=== PATIENT | male | born 1930 | race Two or more races ===

== ENCOUNTER 2016-09-11 08:36 | Inpatient (IN) | payer OTHER, MEDICAID ==
--- NOTE | 2016-09-11 09:13 | EDPHY ---
H & P Stated Complaint: SHAKEY/FEVER/SORE THROAT Time Seen by Provider: 09/11/16 08:56 HPI/ROS: CHIEF COMPLAINT: Fever HISTORY OF PRESENT ILLNESS: The patient is an 85 year old male with history of diabetes who presents to the emergency department with fever yesterday. The patient reports feeling hot, diaphoretic, and shaky after going outside yesterday. He felt short of breath last night as well as this morning with ambulation. The patient has had an ongoing cough since diagnosed with pneumonia last May. He is required to wear oxygen at night but is not always complaint. The patient's BGL this morning was elevated at 200. He denies chest pain, palpitations, vomiting, diarrhea, urinary complaints, headache, lightheadedness. No history of CO or CHF. The patient recently saw Dr. Dickerson, but according to son, he told his PCP that he was asymptomatic and felt fine. Son states the patient is more weak and tired than usual. He intermittently has fevers and has had an ongoing productive cough. The patient had a right leg DVT in May 2016. He is no longer on anticoagulants. REVIEW OF SYSTEMS: Aside from elements discussed in the HPI, a comprehensive 10-point review of systems was reviewed and is negative. PAST MEDICAL HISTORY: Diabetes SOCIAL HISTORY: Former smoker, Lives independently at home, son states home is untidy. 1 beer occasionally. VITAL SIGNS: Reviewed by me GENERAL: Well-developed, well-nourished, visibly tachypneic. HEENT: Atraumatic. Eyes: No icterus, no injection. Mouth: moist mucous membranes. No erythema or lesions. Neck: supple with no adenopathy. LUNGS: Clear to auscultation bilaterally, no wheezes, rhonchi or rales. CARDIAC: Regular rate and rhythm, no rubs, murmurs or gallops. ABDOMEN: Soft, nontender, nondistended, bowel sounds normal. BACK: No CVA tenderness. EXTREMITIES: No trauma. No edema. Range of motion is normal throughout. NEURO: Alert and oriented, grossly nonfocal. SKIN: Warm and dry, no rash. PSYCHIATRIC: Normal mentation, no agitation. Portions of this note were transcribed by a biomedical electronics technician. I personally performed a history, physical exam, medical decision making, and confirmed accuracy of information the transcribed note. - Personal History Current Tetanus/Diphtheria Vaccine: Yes Current Tetanus Diphtheria and Acellular Pertussis (TDAP): Yes - Medical/Surgical History Hx Asthma: No Hx Chronic Respiratory Disease: No Hx Diabetes: Yes Hx Cardiac Disease: Yes Hx Renal Disease: No Hx Cirrhosis: No Hx Alcoholism: No Hx HIV/AIDS: No Hx Splenectomy or Spleen Trauma: No Other PMH: diabetes. htn, high cholesterol. sepsis. "blood clot" - Social History Smoking Status: Former smoker Constitutional: Initial Vital Signs Temperature (C) 36.3 C 09/11/16 08:37 Heart Rate 88 09/11/16 08:37 Respiratory Rate 16 09/11/16 08:37 Blood Pressure 119/52 L 09/11/16 08:37 O2 Sat (%) 96 09/11/16 08:37 O2 Delivery Mode Room Air Allergies/Adverse Reactions: No Known Allergies Allergy (Verified 06/13/16 18:32) Home Medications: Medication Instructions Recorded Albuterol [Proventil] 1 - 2 puffs IH DAILY PRN 05/28/15 Insulin Aspart [Novolog Flexpen] 12 units SQ BID PRN 05/29/15 Atorvastatin Calcium [Lipitor 40 40 mg PO DAILY 09/11/16 mg (*)] Insulin Glargine [Lantus 100 40 units SC HS 09/11/16 UNITS/ML (*)] Medical Decision Making - Diagnostics EKG Interpretation: The 12 lead EKG was interpreted by myself. See hard copy and/or "tracemaster" electronic copy for interpretation: Sinus rhythm, rate 79. Imaging: X-ray: chest was obtained. I viewed the images myself on the PACS system. My interpretation of the images is: Consistent with bronchitis. No pneumonia. The radiologist interpretation is: Prominent perihilar interstitial markings with some peribronchial cuffing. Findings are nonspecific but can be seen with bronchitis or viral process. No dense consolidation seen. I discussed the x-ray findings with the patient. Ultrasound was obtained. I viewed the images myself on the PACS system. The radiologist interpretation is Cholelithiasis without secondary findings of acute cholecystitis 2. Medical renal disease with obstruction of undetermined etiology. Renal margins are indistinct, raising the possibility of chronic infection. CT might be helpful to better understand this. 3. Echogenic liver suggesting fatty infiltration. I discussed the ultrasound findings with the patient. ED Course/Re-evaluation: A manager mail was present for the examination. I ordered chest x-ray and started sepsis protocol. UA is pending. Labs history shows elevated bilirubin of 5. Influenza is still pending. Patient has lactic acid is normal at 1.7. Patient has elevated BUN of 30. Hyperglycemic of 236. Elevated creatinine 1.7. 11:35 a.m.: I spoke to the hospitalist, the patient will be admitted to Dr. Hernandez. 12:00 p.m.: I reexamined the patient. He tells me he is hungry. Abdominal exam is benign, patient is nontender. I discussed abnormal bilirubin. Plan to check US for gallstones. I discussed admission with the patient due to labs suggestive of renal failure and abnormal chest x-ray. Patient agrees with plan for admission. Sepsis Evaluation Note: The patient presents to the ED with potential infection identified as possible pneumonia, possible urinary tract infection. The patient did [not] have evidence of SIRS, no elevated temperature, not tachycardic, not tachypneic, and has a normal WBC. Patient does have other lab abnormalities including at elevated creatinine, elevated bilirubin, elevated LFTs, and bicarbonate of 19. Patient will be admitted to the hospital for further evaluation and treatment. However, I do not believe the patient meets SIRS or sepsis criteria although the patient does report a fever yesterday. 2:30 p.m.: US results called to me. US shows acute cholecystitis. Hospitalist was made aware as well as general surgeon Dr. Wiseman. Differential Diagnosis: Differential diagnosis for this patient's history of fever, and chills was considered including but not limited to pneumonia, urinary tract infection, viral syndrome, and influenza. - Data Points Laboratory Results: Laboratory Results 09/11/16 09:18 09/11/16 09:19 09/11/16 09/11/16 09/11/16 10:18 10:05 09:40 WBC RBC Hgb Hct MCV MCH MCHC RDW Plt Count MPV Neut % (Auto) Lymph % (Auto) [place] % (Auto) Eos % (Auto) Baso % (Auto) Nucleat RBC Rel Count Absolute Neuts (auto) Absolute Lymphs (auto) Absolute Monos (auto) Absolute Eos (auto) Absolute Basos (auto) Absolute Nucleated RBC Immature Gran % Immature Gran # PT INR APTT VBG Lactic Acid 1.7 mmol/L mmol/L (0.7-2.1) Sodium Potassium Chloride Carbon Dioxide Anion Gap BUN Creatinine Estimated GFR Glucose Calcium Total Bilirubin Conjugated Bilirubin Unconjugated Bilirubin AST ALT Alkaline Phosphatase Troponin I NT-Pro-B Natriuret Pep Total Protein Albumin Urine Color DELMA Urine Appearance HAZY Urine pH 5.0 (5.0-7.5) Ur Specific [place] 1.026 (1.002-1.030) Urine Protein 2+ H (NEGATIVE) Urine Ketones NEGATIVE (NEGATIVE) Urine Blood NEGATIVE (NEGATIVE) Urine Nitrate NEGATIVE (NEGATIVE) Urine Bilirubin POSITIVE H (NEGATIVE) Urine Urobilinogen 2.0 EU H EU (0.2-1.0) Ur Leukocyte Esterase NEGATIVE (NEGATIVE) Urine RBC 1-3 /hpf /hpf (0-3) Urine WBC 5-10 /hpf H /hpf (0-3) Ur Epithelial Cells TRACE /lpf /lpf (NONE-1+) Urine Mucus TRACE /lpf /lpf (NONE-1+) Urine Glucose 1+ H (NEGATIVE) Influenza A & B (PCR) NEGATIVE FOR FLU (NEGATIVE) 09/11/16 09/11/16 09/11/16 09:19 09:19 09:18 WBC 8.18 10^3/uL 10^3/uL (3.80-9.50) RBC 4.37 10^6/uL L 10^6/uL (4.40-6.38) Hgb 14.4 g/dL g/dL (13.7-17.5) Hct 40.5 % % (40.0-51.0) MCV 92.7 fL fL (81.5-99.8) MCH 33.0 pg pg (27.9-34.1) MCHC 35.6 g/dL g/dL (32.4-36.7) RDW 13.9 % % (11.5-15.2) Plt Count 106 10^3/uL L 10^3/uL (150-400) MPV 11.1 fL fL (8.7-11.7) Neut % (Auto) 81.2 % H % (39.3-74.2) Lymph % (Auto) 12.3 % L % (15.0-45.0) [place] % (Auto) 4.9 % % (4.5-13.0) Eos % (Auto) 0.7 % % (0.6-7.6) Baso % (Auto) 0.5 % % (0.3-1.7) Nucleat RBC Rel Count 0.0 % % (0.0-0.2) Absolute Neuts (auto) 6.64 10^3/uL H 10^3/uL (1.70-6.50) Absolute Lymphs (auto) 1.01 10^3/uL 10^3/uL (1.00-3.00) Absolute Monos (auto) 0.40 10^3/uL 10^3/uL (0.30-0.80) Absolute Eos (auto) 0.06 10^3/uL 10^3/uL (0.03-0.40) Absolute Basos (auto) 0.04 10^3/uL 10^3/uL (0.02-0.10) Absolute Nucleated RBC 0.00 10^3/uL 10^3/uL (0-0.01) Immature Gran % 0.4 % % (0.0-1.1) Immature Gran # 0.03 10^3/uL 10^3/uL (0.00-0.10) PT 14.6 SEC SEC (12.0-15.0) INR 1.15 (0.83-1.16) APTT 30.7 SEC SEC (23.0-38.0) VBG Lactic Acid Sodium 139 mEq/L mEq/L (134-144) Potassium 4.5 mEq/L mEq/L (3.5-5.2) Chloride 108 mEq/L mEq/L (97-110) Carbon Dioxide 19 mEq/l L mEq/l (22-31) Anion Gap 12 mEq/L mEq/L (8-16) BUN 30 mg/dL H mg/dL (7-23) Creatinine 1.7 mg/dL H mg/dL (0.7-1.3) Estimated GFR 38 Glucose 236 mg/dL H mg/dL (70-100) Calcium 9.9 mg/dL mg/dL (8.5-10.4) Total Bilirubin 5.4 mg/dL H mg/dL (0.1-1.4) Conjugated Bilirubin 4.1 mg/dL H mg/dL (0.0-0.5) Unconjugated Bilirubin 1.3 mg/dL H mg/dL (0.0-1.1) AST ALT Alkaline Phosphatase Troponin I 0.026 ng/mL ng/mL (0-0.034) NT-Pro-B Natriuret Pep 1300 pg/mL H pg/mL (0-450) Total Protein Albumin Urine Color Urine Appearance Urine pH Ur Specific [place] Urine Protein Urine Ketones Urine Blood Urine Nitrate Urine Bilirubin Urine Urobilinogen Ur Leukocyte Esterase Urine RBC Urine WBC Ur Epithelial Cells Urine Mucus Urine Glucose Influenza A & B (PCR) 09/11/16 08:36 WBC RBC Hgb Hct MCV MCH MCHC RDW Plt Count MPV Neut % (Auto) Lymph % (Auto) [place] % (Auto) Eos % (Auto) Baso % (Auto) Nucleat RBC Rel Count Absolute Neuts (auto) Absolute Lymphs (auto) Absolute Monos (auto) Absolute Eos (auto) Absolute Basos (auto) Absolute Nucleated RBC Immature Gran % Immature Gran # PT INR APTT VBG Lactic Acid Sodium Potassium Chloride Carbon Dioxide Anion Gap BUN Creatinine Estimated GFR Glucose Calcium Total Bilirubin 5.1 mg/dL H mg/dL (0.1-1.4) Conjugated Bilirubin 4.0 mg/dL H mg/dL (0.0-0.5) Unconjugated Bilirubin 1.1 mg/dL mg/dL (0.0-1.1) AST 293 IU/L H IU/L (17-59) ALT 349 IU/L H IU/L (21-72) Alkaline Phosphatase 127 IU/L H IU/L (38-126) Troponin I NT-Pro-B Natriuret Pep Total Protein 6.8 g/dL g/dL (6.3-8.2) Albumin 3.8 g/dL g/dL (3.5-5.0) Urine Color Urine Appearance Urine pH Ur Specific [place] Urine Protein Urine Ketones Urine Blood Urine Nitrate Urine Bilirubin Urine Urobilinogen Ur Leukocyte Esterase Urine RBC Urine WBC Ur Epithelial Cells Urine Mucus Urine Glucose Influenza A & B (PCR) Medications Given: Discontinued Medications Sodium Chloride (Ns) 1,000 mls @ 0 mls/hr IV ONCE ONE PRN Reason: Wide Open Stop: 09/11/16 12:08 Last Admin: 09/11/16 12:31 Dose: 1,000 mls Departure - Departure Disposition: [facility] Clinical Impression: Hyperglycemia, Shortness of breath, Renal insufficiency Fever Qualifiers: Fever type: unspecified Qualified Code(s): R50.9 - Fever, unspecified Condition: Fair Report Scribed for: Shari Lee Report Scribed by: Gabriela Knowles Date of Report: 09/11/16 Time of Report: 09:22
[2016-09-11 09:40] LABS: % IMMATURE GRANULYOCYTES 0.4 % (0.0-1.1); ABSOLUTE IMMATURE GRANULOCYTES 0.03 10^3/uL (0.00-0.10); ADD DIFF? NO; ADD MORPH? NO; ADD SCAN? NO; ATYPICAL LYMPHOCYTE FLAG 0 (0-99); FRAGMENT RBC FLAG 0 (0-99); HEMATOCRIT 40.5 % (40.0-51.0); HEMOGLOBIN 14.4 g/dL (13.7-17.5); LEFT SHIFT FLG 80 (0-99); LIPEMIA HEMOLYSIS FLAG 90 (0-99); MEAN CELL HEMOGLOBIN CONCENTR. 35.6 g/dL (32.4-36.7); MEAN CELL VOLUME 92.7 fL (81.5-99.8); MEAN PLATELET VOLUME 11.1 fL (8.7-11.7); PLATELET CLUMPS FLAG 0 (0-99); PLATELET COUNT 106 10^3/uL (150-400); RED BLOOD CELL COUNT 4.37 10^6/uL (4.40-6.38); RED CELL DISTRIBUTION WIDTH 13.9 % (11.5-15.2)
[2016-09-11 09:46] LABS: INR 1.15 (0.83-1.16); PROTIME(PATIENT) 14.6 SEC (12.0-15.0)
[2016-09-11 09:47] LABS: APTT 30.7 SEC (23.0-38.0)
--- NOTE | 2016-09-11 09:49 | CPEKG ---
Heart Rate: 79 RR Interval: 759 P-R Interval: 184 QRSD Interval: 66 QT Interval: 360 QTC Interval: 413 P [place]: 60 QRS [place]: 53 T Wave [place]: 79 EKG Severity - NORMAL ECG - EKG Impression: SINUS RHYTHM Electronically Signed By: Shari Lee 11-Sep-2016 15:39:45
[2016-09-11 09:57] LABS: TROPONIN I 0.026 ng/mL (0-0.034)
[2016-09-11 10:34] LABS: ANION GAP 12 mEq/L (8-16); CALCIUM 9.9 mg/dL (8.5-10.4); CARBON DIOXIDE 19 mEq/l (22-31); CHLORIDE 108 mEq/L (97-110); CREATININE 1.7 mg/dL (0.7-1.3); GLOMERULAR FILTRATION RATE 38; GLUCOSE 236 mg/dL (70-100); POTASSIUM 4.5 mEq/L (3.5-5.2); SODIUM 139 mEq/L (134-144)
[2016-09-11 10:39] LABS: COLOR AMBER; LEUKOCYTE ESTERASE,URINE NEGATIVE (NEGATIVE); NITRITE,URINE NEGATIVE (NEGATIVE)
[2016-09-11 10:42] LABS: MUCUS TRACE /lpf (NONE-1+)
[2016-09-11 10:56] LABS: BILIRUBIN,TOTAL 5.4 mg/dL (0.1-1.4)
[2016-09-11 11:03] LABS: BILIRUBIN-CONJUGATED 4.1 mg/dL (0.0-0.5); BILIRUBIN-UNCONJUGATED 1.3 mg/dL (0.0-1.1)
[2016-09-11 11:28] LABS: ALBUMIN 3.8 g/dL (3.5-5.0); BILIRUBIN,TOTAL 5.1 mg/dL (0.1-1.4); BILIRUBIN-UNCONJUGATED 1.1 mg/dL (0.0-1.1); TOTAL PROTEIN 6.8 g/dL (6.3-8.2)
[2016-09-11] MEDS ORDERED: NS 1,000 ML IV ONE (12:07)
[2016-09-11] MEDS ORDERED: ONDANSETRON DISINTEGRATING 4 MG TAB PO PRN (15:17)
[2016-09-11] MEDS ORDERED: ONDANSETRON 4 MG/2 ML VIAL IVP PRN (15:17)
[2016-09-11] MEDS ORDERED: ALBUTEROL IH PRN (15:19)
[2016-09-11] MEDS ORDERED: INSULIN ASPART 12 UNIT SQ PRN (15:19)
[2016-09-11] MEDS ORDERED: NS 1,000 ML IV SCH (15:30)
[2016-09-11] MEDS ORDERED: INSULIN LISPRO 100 UNIT/ML SC PRN (15:41)
[2016-09-11] MEDS ORDERED: ALBUTEROL 60 PUFFS/8 GM MDI IH PRN (15:42)
--- NOTE | 2016-09-11 15:53 | GHP ---
[f rep st] HISTORY AND PHYSICAL DATE OF ADMISSION: 09/11/2016 CHIEF COMPLAINT: Fever. HISTORY OF PRESENT ILLNESS: This is an 85-year-old male with a history of type 2 diabetes. He stat es that yesterday he was not feeling well and then came home yesterday afternoon and was not feeling , and he came home and had rigors and fever. He denies any abdominal pain. No nausea, vomiting. H is symptoms resolved, and then he came today for further evaluation. At this point, he is continuin g to deny any abdominal pain. He feels actually back to normal. He is very hungry and really wants to eat. He has not had any diarrhea. He has not had pain like this before. REVIEW OF SYSTEMS: A 10-point review of systems was obtained and other than stated was negative. PAST MEDICAL HISTORY: 1. Type 2 diabetes. 2. Hypertension. 3. Hyperlipidemia. 4. Possible chronic kidney disease. MEDICATIONS: Reviewed. SOCIAL HISTORY: No smoking or alcohol. Lives independently. FAMILY HISTORY: Both parents are . PHYSICAL EXAMINATION: VITAL SIGNS: Afebrile blood pressure is 136/66, heart rate 86, oxygen satura tion 92% on room air. GENERAL: The patient is well developed, in no apparent distress. HEENT: No nicteric sclerae. Moist mucous membranes. NECK: Supple. LUNGS: Good effort. Clear to auscultat ion bilaterally. CARDIOVASCULAR: Regular rate and rhythm. No murmurs, gallops. ABDOMEN: Positiv e bowel sounds. Soft. Really no tenderness with deep palpation in the right upper quadrant. EXTRE MITIES: No clubbing, cyanosis, or edema. SKIN: Without rash, intact. NEUROLOGIC: Alert and orie nted x3, moving all 4 extremities. PSYCH: Normal mood and affect. LABS: White blood cell count 8, platelets a little bit low at 106. Creatinine is 1.7, total biliru bin 5.1, with a conjugated at 4.1, AST 293, ALT 349. UA does not show a urinary tract infection. A bdominal : Right upper quadrant shows cholelithiasis, without cholecystitis with fatty li edson, without obvious biliary obstruction. Diffusely echogenic. Mild hydronephrosis without any obs truction visualized. ASSESSMENT: This is an 85-year-old male presenting with episode of fever last night, elevated liver function testing, cholelithiasis. PLAN: 1. Cholelithiasis, rule out choledocholithiasis with ascending cholangitis. The patient has no abd ominal tenderness, no white count , fever currently. He is feeling a lot better. I think he probably passed a stone. However, I did discuss the case with Surgery. Recommended MRCP to rul e out choledocholithiasis. We will give him a dose of Invanz just in case there is a cholangitis. We will get an MR. If MRCP is negative, I am not sure in this 85-year-old, that a cholecystectomy w ould necessarily be indicated. We will follow liver function tests. 2. Acute/possibly chronic renal failure. Looking back at his creatinines, they are mostly in the 1 .6 to 1.8 range. I suspect this may be chronic. He does have some possible right hydronephrosis. We will go ahead with CT scanning to further evaluate. 3. Type 2 diabetes. We will continue insulin. 4. Hyperlipidemia. Will hold statin. 5. Admission. Patient will be admitted under observation status. Case discussed with the ER physi [place] and Surgery. Old records reviewed and summarized in the HPI. /[id number]/MODL
[2016-09-11] MEDS: ERTAPENEM 1 GM in NS 100 ML IV SCH (17:44)
[2016-09-11] MEDS: ACETAMINOPHEN 325 MG TAB PO PRN (18:21)
[2016-09-11] MEDS: INSULIN GLARGINE 100 UNITS/ML SYRINGE SC SCH (20:18)
--- NOTE | 2016-09-11 20:35 | GCON ---
[f rep st] CONSULTATION DATE OF CONSULTATION: 09/11/2016 REFERRING PHYSICIAN: Shari Lee MD CHIEF COMPLAINT: Choledocholithiasis. HISTORY OF PRESENT ILLNESS: The patient is an 85-year-old man who is being admitted for fever and a sore throat. He was also short of breath. In the emergency room he had a chest x-ray obtained which showed hilar interstitial markings with some peribronchial cuffing. He had an ultrasound obtained of his abdomen which showed cholelithiasis without acute cholecystitis, question of renal disease. LABORATORY WORK: Revealed a normal white count. His total bilirubin is 5.1, conjugated 4.0. AST 293. ALT 349. Alkaline phosphatase 127. PAST MEDICAL HISTORY: Diabetes mellitus, sleep apnea, hypertension, hyperlipidemia. PAST SURGICAL HISTORY: No abdominal surgery. SOCIAL HISTORY: He lives independently. He is primarily Kyrgyz-speaking. He denies tobacco or alcohol use. FAMILY HISTORY: His parents are . His daughter and granddaughter are in the room and healthy. REVIEW OF SYSTEMS: Difficult to obtain due to language. PHYSICAL EXAMINATION: VITAL SIGNS: 37.1, 86, 136/66, 92% on room air. GENERAL : Pleasant, well-nourished, well-groomed man sitting on exam table. He appears well. HEENT: Normocephalic. No gross hearing deficits. Mucous membranes moist. Pupils equal and round. LUNGS: Clear to auscultation bilaterally. No increased work of breathing. CARDIAC: Regular rate. No peripheral edema. ABDOMEN: Soft, nontender, nondistended. RESULTS REVIEWED: Since admission he, in addition, had a CT of his abdomen and pelvis which showed an atrophic right kidney with an obstructing stone in the right ureter, gallstones. He had an MRCP which did not show any biliary dilatation or a pancreatic mass. IMPRESSION AND PLAN: The patient is an 85-year-old man who was admitted for fevers and weakness. He does have a known kidney stone and, at this time, I am unclear why his direct bilirubin is elevated. He is feeling well. I agree with regular diet. I will follow up with his liver function tests and final read on MRCP. I am hopeful he will not need surgery. /[id number]/MODL MTDD
[2016-09-12 05:30] LABS: ALANINE AMINOTRANSFERASE 217 IU/L (21-72); ALBUMIN 3.2 g/dL (3.5-5.0); ALKALINE PHOSPHATASE 111 IU/L (38-126); ANION GAP 8 mEq/L (8-16); ASPARTATE AMINOTRANSFERASE 146 IU/L (17-59); CALCIUM 8.9 mg/dL (8.5-10.4); CARBON DIOXIDE 22 mEq/l (22-31); CHLORIDE 110 mEq/L (97-110); CREATININE 1.4 mg/dL (0.7-1.3); GLOMERULAR FILTRATION RATE 48; GLUCOSE 116 mg/dL (70-100); SODIUM 140 mEq/L (134-144); TOTAL PROTEIN 5.7 g/dL (6.3-8.2)
[2016-09-12 05:43] LABS: % IMMATURE GRANULYOCYTES 0.2 % (0.0-1.1); ABSOLUTE IMMATURE GRANULOCYTES 0.01 10^3/uL (0.00-0.10); ADD DIFF? NO; ADD MORPH? NO; ADD SCAN? NO; ATYPICAL LYMPHOCYTE FLAG 0 (0-99); FRAGMENT RBC FLAG 0 (0-99); HEMATOCRIT 37.8 % (40.0-51.0); HEMOGLOBIN 13.4 g/dL (13.7-17.5); LEFT SHIFT FLG 10 (0-99); LIPEMIA HEMOLYSIS FLAG 90 (0-99); MEAN CELL HEMOGLOBIN 32.7 pg (27.9-34.1); MEAN CELL HEMOGLOBIN CONCENTR. 35.4 g/dL (32.4-36.7); MEAN CELL VOLUME 92.2 fL (81.5-99.8); MEAN PLATELET VOLUME 11.2 fL (8.7-11.7); PLATELET CLUMPS FLAG 0 (0-99); PLATELET COUNT 84 10^3/uL (150-400); RED CELL DISTRIBUTION WIDTH 14.1 % (11.5-15.2)
[2016-09-12] MEDS: ERTAPENEM 1 GM in NS 100 ML IV SCH (08:52)
--- NOTE | 2016-09-12 09:13 | HOSPPROG ---
Hospitalist Progress Note Assessment/Plan: He patient is an 85-year-old male with a history of type 2 diabetes. He has not been not feeling well and had rigors, fevers;he denies any abdominal pain. No nausea or vomiting. Today is my 1st encounter with the patient. Chart reviewed. Reviewed his care with Dr Jordan. * bacteremia /E coli -on Ertpanem -ID to see -possibly a urinary source *cholelithiasis -no surgery indicated *right lower lobe 11 mm pulmonary nodule vs calculi scarring -will need OP repeat imaging in 6 months *Obstructing calculi in proximal right ureter -has no hydro noted * renal insufficiency - creatinine is 1.4 * thrombocytopenia -likely due to acute illness * type 2 diabetes -home meds resumed *elevated LFT's/elevated bili -some improvement / will follow * hyperlipidemia -statin on hold due to the above *plan: patient will require IP status due to bacteremia and needing iv abx therapy Subjective: Shiva says he has no pain. Objective: Vital Signs Temp Pulse Resp BP Pulse Ox 36.3 C 72 16 129/63 H 95 09/12/16 07:56 09/12/16 07:56 09/12/16 07:56 09/12/16 07:56 09/12/16 07:56 Laboratory Results 09/12/16 05:01 09/12/16 05:01 09/11/16 09/12/16 09/13/16 05:59 05:59 05:59 Intake Total 1200 Balance 1200 PT 14.6 SEC (12.0-15.0) 09/11/16 09:19 INR 1.15 (0.83-1.16) 09/11/16 09:19 - Physical Exam Constitutional: no apparent distress, appears nourished, not in pain Eyes: PERRL Ears, Nose, Mouth, Throat: hearing normal Cardiovascular: regular rate and rhythym Respiratory: no respiratory distress Gastrointestinal: normoactive bowel sounds, soft, non-tender abdomen, other ( large and round) Skin: warm, normal color Musculoskeletal: full muscle strength, no muscle tenderness Neurologic: AAOx3 Psychiatric: interacting appropriately, not anxious ICD10 Worksheet Patient Problems: Problems Problem Status Onset Fever Acute Hyperglycemia Acute Renal insufficiency Acute Shortness of breath Acute Elevated troponin Acute Hypotension Acute Tachypnea Acute Weakness Acute
--- NOTE | 2016-09-12 15:41 | GCON ---
[f rep st] CONSULTATION INFECTIOUS DISEASE CONSULTATION DATE OF CONSULTATION: 09/12/2016 REASON FOR CONSULTATION: E coli bacteremia. SOURCE: patient and son with assistance of undercutter operator HISTORY OF PRESENT ILLNESS: An 85-year-old male with a past medical history of diabetes who presented to the emergency room with a fever that started on 2016. Patient describes feeling diaphoretic, shaky, but denies localizing pain such as chest pain, abdominal pain, vomiting, diarrhea, urinary complaints, flank pain, headache. In addition, he denied joint pain and rash as well. Today, patient reports feeling significantly improved and desires to go home. PAST MEDICAL HISTORY: 1. Diabetes. 2. Hyperlipidemia. 3. DVT right leg in May 2016, no longer on anticoagulation. 4. Chronic renal insufficiency, but patient is unaware of this diagnosis. SOCIAL HISTORY: Former smoker. 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 He lived most of his life in [place] but he moved here. Four of his children live here in [place] and four in [place]. He still lives independently and his family has significant concern over this. He drinks occasional alcohol. He is a for greater than 20 years. FAMILY HISTORY: Positive for diabetes. REVIEW OF SYSTEMS: A complete 10-point review of systems was performed and is negative except as mentioned in the HPI. ALLERGIES: No known drug allergies. MEDICATIONS: Tylenol, albuterol, ertapenem 1 g IV daily (started 09/11/2016), insulin, and Zofran. PHYSICAL EXAM: VITAL SIGNS: Blood pressure 129/63, heart rate 72, respiratory rate 16, saturation 95% on room air, temperature 36.3. GENERAL: This is a pleasant elderly male sitting up in bed, Vietnamese-speaking only. He is in no respiratory distress. HEENT: He has dentures above and below. Moist mucous membranes. He has bilateral arcus senilis. Extraocular muscles were intact. No conjunctival hemorrhages. NECK: Supple. No lymphadenopathy. CARDIOVASCULAR: Regular rate and rhythm. No murmurs. CHEST: Clear to auscultation bilaterally. ABDOMEN: Moderately obese, soft, nontender. Bowel sounds are present. EXTREMITIES: No clubbing, cyanosis, or edema. NEUROLOGIC : He is alert and oriented x4. Moving all 4 extremities equally. : No [place] was in place. He had no tenderness, flank pain or suprapubic tenderness. LABORATORY: White count 8.8, hematocrit 40, platelets 106, 81% neutrophils, 12 % lymphocytes. White count today was 4.6, platelets of 84. Creatinine on admission 1.7, today 1.6. AST 146, on admission 296. ALT 217 today to 349 on admission. Total bilirubin 4.0, conjugated bilirubin 3.0. IMAGING: CT scan for stone showed a 7 x 11 mm obstructing calculus in the bilateral ureters with associated atrophy of the kidney without hydronephrosis. It also showed tiny gallstones. The patient had MRCP which showed no choledocholithiasis or biliary dilatation. He did have cholelithiasis without MRI findings consistent with cholecystitis. He had mild right hydronephrosis with associated severe atrophy. Blood cultures from 09/11, 07/31 were growing E coli, susceptibilities pending. No urine culture was collected. Urinalysis showed 2+ urobilinogen, 5-10 WBCs, positive bilirubin, negative nitrite, negative leukocyte esterase. ASSESSMENT AND PLAN: This is an 85-year-old male who presents with a subjective fever and rigors, subsequently found to have Escherichia coli bacteremia. Source of Escherichia coli bacteremia may be biliary, although this seems unlikely now that MRI shows no choledocholithiasis and no evidence of cholecystitis. Also could consider a urinary source with chronic obstructed right ureter and some mild pyuria on urinalysis; unfortunately, urine culture was not sent. Also notable associated findings include transaminitis with prominent bilirubinemia and thrombocytopenia. He also had mild acute on chronic renal failure. Patient is now back to baseline creatinine at 1.4. 1. Sepsis due to E Coli bacteremia 2. Escherichia coli bacteremia, unclear source, possible urinary, less likely biliary. 3. Acute renal failure, now resolved with hydration and back to baseline creatinine 1.4. 4. Hepatitis with disproportionate elevated bilirubinemia, suspect due to sepsis/ bacteremia 5. Thrombocytopenia, also suspect this is due to acute infection. RECOMMENDATIONS: 1. Continue ertapenem until susceptibilities are known. 2. Obtain repeat blood cultures 09/13 in the a.m. 3. Send hepatitis serologies to rule out underlying viral hepatitis. 4. Appreciate surgical consult evaluating for underlying biliary disease. 5. We will discuss whether worthwhile to consult Urology for chronic obstructed ureter on the right. Not clear if removing the stone is worthwhile with already atrophic changes present. Will discuss with hospitalist. Thank you for this consultation. We will continue to follow on a daily basis. /[id number]/MODL MTDD
[2016-09-12] MEDS: ACETAMINOPHEN 325 MG TAB PO PRN (17:23)
--- NOTE | 2016-09-12 17:52 | SOAPPROG ---
SOAP Progress Note Assessment/Plan: Assessment: 85yo M admitted with fevers, found to have elevated bilirubin Labs improved this am asymptomatic Monitor, but likely home soon May have passed a gallstone, imaging without evidence of choledocholithiasis Seen with Dr. Wiseman and language interpreter S: "I have never had any pain" O: laying in bed, comfortable, NAD, making jokes CTAB, no increased wob RRR +BS, soft, nondistended, nontender. Neg. robertson's sign Objective: Vital Signs Temp Pulse Resp BP Pulse Ox 36.7 C 75 16 136/70 H 95 09/12/16 15:26 09/12/16 15:26 09/12/16 15:26 09/12/16 15:26 09/12/16 15:26 PT 14.6 SEC (12.0-15.0) 09/11/16 09:19 INR 1.15 (0.83-1.16) 09/11/16 09:19 ICD10 Worksheet Patient Problems: Problems Problem Status Onset Fever Acute Hyperglycemia Acute Renal insufficiency Acute Shortness of breath Acute Elevated troponin Acute Hypotension Acute Tachypnea Acute Weakness Acute
[2016-09-12] MEDS: INSULIN GLARGINE 100 UNITS/ML SYRINGE SC SCH (20:12)
[2016-09-13 06:08] LABS: ALANINE AMINOTRANSFERASE 180 IU/L (21-72); ALBUMIN 3.3 g/dL (3.5-5.0); ALKALINE PHOSPHATASE 142 IU/L (38-126); ANION GAP 9 mEq/L (8-16); ASPARTATE AMINOTRANSFERASE 112 IU/L (17-59); BILIRUBIN,TOTAL 2.2 mg/dL (0.1-1.4); CARBON DIOXIDE 17 mEq/l (22-31); CHLORIDE 109 mEq/L (97-110); CREATININE 1.2 mg/dL (0.7-1.3); GLOMERULAR FILTRATION RATE 57; GLUCOSE 134 mg/dL (70-100); POTASSIUM 4.2 mEq/L (3.5-5.2); SODIUM 135 mEq/L (134-144); TOTAL PROTEIN 6.2 g/dL (6.3-8.2)
[2016-09-13 06:15] LABS: BILIRUBIN-CONJUGATED 1.5 mg/dL (0.0-0.5); BILIRUBIN-UNCONJUGATED 0.7 mg/dL (0.0-1.1)
[2016-09-13] MEDS: ERTAPENEM 1 GM in NS 100 ML IV SCH (09:58)
[2016-09-13] MEDS: ENOXAPARIN 30 MG/0.3 ML SYR SC SCH (13:03)
--- NOTE | 2016-09-13 14:42 | PCMIDPN ---
Assessment/Plan: Assessment/Plan: 1. E. coli bacteremia/sepsis: - Unclear source. - Abd USG/CT/MRI reviewed. cholelithiasis but no e/o acute cholecystitis etc. -no urine cx sent. -Has hx of renal insufficiency and e/o obstructing calculus in proximal right ureter with atrophic kidney. -Sensitivities reviewed. pansensitive. - Will change invanz to levaquin renally dosed. Meds invanz Subjective: AFebrile. FEels better overall. Larry abd pain, flank pain, back pain, dysuria, nausea. He has been walking hallways. Granddaughter present. Objective: Vital Signs Temp Pulse Resp BP Pulse Ox 36.4 C 73 16 130/83 H 95 09/13/16 08:00 09/13/16 08:00 09/13/16 08:00 09/13/16 08:00 09/13/16 08:00 Laboratory Results 09/13/16 05:22 09/12/16 09/13/16 09/14/16 05:59 05:59 05:59 Intake Total 1000 Balance 1000 - Physical Exam General Appearance: alert, no apparent distress Respiratory: lungs clear Cardiac/Chest: regular rate, rhythm Extremities: No swelling Abdomen: normal bowel sounds, non-tender, soft, No distended Skin: No erythema ICD10 Worksheet Patient Problems: Problems Problem Status Onset Fever Acute Hyperglycemia Acute Renal insufficiency Acute Shortness of breath Acute Elevated troponin Acute Hypotension Acute Tachypnea Acute Weakness Acute
--- NOTE | 2016-09-13 15:17 | HOSPPROG ---
Hospitalist Progress Note Assessment/Plan: He patient is an 85-year-old male with a history of type 2 diabetes. He has not been not feeling well and had rigors, fevers; he denies any abdominal pain. No nausea or vomiting. * bacteremia /E coli -on Ertpanem/ changed to Levaquin -ID to see -possibly a urinary source, but not completely clear of source *cholelithiasis -no surgery indicated *right lower lobe 11 mm pulmonary nodule vs calculi scarring -will need OP repeat imaging in 6 months *Obstructing calculi in proximal right ureter -has no hydro noted * renal insufficiency - creatinine is 1.2/improved * thrombocytopenia -likely due to acute illness -recheck labs in a.m. * type 2 diabetes -home meds resumed *elevated LFT's/elevated bili * hyperlipidemia -statin on hold due to the above *plan: continue current treatment/ met with the patient via the nuclear design engineer/ family at the bedside/continue current plan/ explained to patient and family, he will be here until blood cultures clear Subjective: Shiva is feeling better/ wants to know when he can go home. Objective: Vital Signs Temp Pulse Resp BP Pulse Ox 36.4 C 73 16 130/83 H 95 09/13/16 08:00 09/13/16 08:00 09/13/16 08:00 09/13/16 08:00 09/13/16 08:00 Laboratory Results 09/13/16 05:22 09/12/16 09/13/16 09/14/16 05:59 05:59 05:59 Intake Total 1000 Balance 1000 PT 14.6 SEC (12.0-15.0) 09/11/16 09:19 INR 1.15 (0.83-1.16) 09/11/16 09:19 - Physical Exam Constitutional: no apparent distress, appears nourished, not in pain Eyes: PERRL, icteric sclera (mild) Ears, Nose, Mouth, Throat: hearing normal Cardiovascular: regular rate and rhythym Respiratory: no respiratory distress Gastrointestinal: normoactive bowel sounds, soft, non-tender abdomen Skin: warm Musculoskeletal: no muscle tenderness Neurologic: AAOx3 Psychiatric: interacting appropriately, not anxious, not encephalopathic ICD10 Worksheet Patient Problems: Problems Problem Status Onset Fever Acute Hyperglycemia Acute Renal insufficiency Acute Shortness of breath Acute Elevated troponin Acute Hypotension Acute Tachypnea Acute Weakness Acute
[2016-09-13 15:27] LABS: HEPATITIS Bs Ab QUANT <5.0 mIU/mL
[2016-09-13] MEDS: INSULIN GLARGINE 100 UNITS/ML SYRINGE SC SCH (20:20)
--- NOTE | 2016-09-13 23:50 | SOAPPROG ---
SOAP Progress Note Assessment/Plan: Assessment: e Coli bactermia. Source unclear. Surgery on standby. Plan: 09/13/16 23:50 Objective: Vital Signs Temp Pulse Resp BP Pulse Ox 36.9 C 77 16 127/69 H 96 09/13/16 22:29 09/13/16 22:29 09/13/16 22:29 09/13/16 22:29 09/13/16 22:29 Laboratory Results 09/13/16 05:22 09/12/16 09/13/16 09/14/16 05:59 05:59 05:59 Intake Total 1000 Balance 1000 PT 14.6 SEC (12.0-15.0) 09/11/16 09:19 INR 1.15 (0.83-1.16) 09/11/16 09:19 ICD10 Worksheet Patient Problems: Problems Problem Status Onset Fever Acute Hyperglycemia Acute Renal insufficiency Acute Shortness of breath Acute Elevated troponin Acute Hypotension Acute Tachypnea Acute Weakness Acute
[2016-09-14 05:23] LABS: ADD DIFF? NO; ADD MORPH? NO; ADD SCAN? NO; ATYPICAL LYMPHOCYTE FLAG 40 (0-99); FRAGMENT RBC FLAG 0 (0-99); HEMATOCRIT 38.7 % (40.0-51.0); HEMOGLOBIN 13.7 g/dL (13.7-17.5); LEFT SHIFT FLG 0 (0-99); LIPEMIA HEMOLYSIS FLAG 90 (0-99); MEAN CELL HEMOGLOBIN 33.3 pg (27.9-34.1); MEAN CELL HEMOGLOBIN CONCENTR. 35.4 g/dL (32.4-36.7); MEAN CELL VOLUME 94.2 fL (81.5-99.8); MEAN PLATELET VOLUME 11.3 fL (8.7-11.7); PLATELET CLUMPS FLAG 0 (0-99); PLATELET COUNT 98 10^3/uL (150-400); RED BLOOD CELL COUNT 4.11 10^6/uL (4.40-6.38); RED CELL DISTRIBUTION WIDTH 13.8 % (11.5-15.2)
[2016-09-14 05:43] LABS: ALANINE AMINOTRANSFERASE 155 IU/L (21-72); ALBUMIN 3.5 g/dL (3.5-5.0); ALKALINE PHOSPHATASE 175 IU/L (38-126); ANION GAP 11 mEq/L (8-16); ASPARTATE AMINOTRANSFERASE 91 IU/L (17-59); BILIRUBIN,TOTAL 1.5 mg/dL (0.1-1.4); CALCIUM 9.1 mg/dL (8.5-10.4); CARBON DIOXIDE 18 mEq/l (22-31); CHLORIDE 107 mEq/L (97-110); CREATININE 1.2 mg/dL (0.7-1.3); GLOMERULAR FILTRATION RATE 57; GLUCOSE 115 mg/dL (70-100); POTASSIUM 4.3 mEq/L (3.5-5.2); SODIUM 136 mEq/L (134-144); TOTAL PROTEIN 6.4 g/dL (6.3-8.2)
[2016-09-14] MEDS: ENOXAPARIN 30 MG/0.3 ML SYR SC SCH (08:29)
--- NOTE | 2016-09-14 10:28 | PCMIDPN ---
Assessment/Plan: Assessment/Plan: 1. E. coli bacteremia/sepsis: - Unclear source. -Abd USG/CT/MRI reviewed. cholelithiasis but no e/o acute cholecystitis etc. -no urine cx sent. -f/u blood cx from 09/12 and 09/13 ngtd. Quickly cleared. - on D#3 -Has hx of renal insufficiency and e/o obstructing calculus in proximal right ureter with atrophic kidney. -Sensitivities reviewed. pansensitive. -On levaquin PO renally dosed, q48 . Plan for 10 days - Meds levaquin 750mng q48-09/13/16 s/p \invanz Subjective: Afebrile. Feels well. Denies abd pain, flank pain or back pain. Denies sob. Objective: Vital Signs Temp Pulse Resp BP Pulse Ox 36.8 C 72 16 122/61 H 95 09/14/16 07:43 09/14/16 07:43 09/14/16 07:43 09/14/16 07:43 09/14/16 07:43 Laboratory Results 09/14/16 04:38 09/14/16 04:38 09/13/16 09/14/16 09/15/16 05:59 05:59 05:59 Intake Total 1000 Balance 1000 - Physical Exam General Appearance: alert, no apparent distress Respiratory: lungs clear Cardiac/Chest: regular rate, rhythm Extremities: No swelling Abdomen: normal bowel sounds, non-tender, soft, No distended Back: No CVA tenderness Skin: No erythema ICD10 Worksheet Patient Problems: Problems Problem Status Onset Fever Acute Hyperglycemia Acute Renal insufficiency Acute Shortness of breath Acute Elevated troponin Acute Hypotension Acute Tachypnea Acute Weakness Acute
[2016-09-14] MEDS ORDERED: D50W 25 GM/50 ML SYR IVP PRN (11:58)
[2016-09-14] MEDS: INSULIN LISPRO 100 UNIT/ML SC SCH ×2 (12:22→18:40)
--- NOTE | 2016-09-14 14:52 | HOSPPROG ---
Hospitalist Progress Note Assessment/Plan: He patient is an 85-year-old male with a history of type 2 diabetes. He has not been not feeling well and had rigors, fevers; he denies any abdominal pain. No nausea or vomiting. * bacteremia /E coli -Levaquin -possibly a urinary source, but not completely clear of source -3rd set of blood cx *cholelithiasis -no surgery indicated *right lower lobe 11 mm pulmonary nodule vs calculi scarring -will need OP repeat imaging in 6 months *Obstructing calculi in proximal right ureter -has no hydro noted * renal insufficiency - creatinine is 1.2/improved * thrombocytopenia -likely due to acute illness * type 2 diabetes -place on sliding scale and have glucoses checked QAC and QHS *elevated LFT's/elevated bili -improved except for alk phos * hyperlipidemia -statin on hold due to the above *plan: continue current treatment Subjective: Shiva has no pain/ feels well/ anxious to go home. Objective: Vital Signs Temp Pulse Resp BP Pulse Ox 36.8 C 72 16 122/61 H 95 09/14/16 07:43 09/14/16 07:43 09/14/16 07:43 09/14/16 07:43 09/14/16 07:43 Laboratory Results 09/14/16 04:38 09/14/16 04:38 09/13/16 09/14/16 09/15/16 05:59 05:59 05:59 Intake Total 1000 Balance 1000 PT 14.6 SEC (12.0-15.0) 09/11/16 09:19 INR 1.15 (0.83-1.16) 09/11/16 09:19 - Physical Exam Constitutional: not in pain Eyes: PERRL Ears, Nose, Mouth, Throat: hearing normal Cardiovascular: regular rate and rhythym Respiratory: no rales or rhonchi Gastrointestinal: normoactive bowel sounds, soft, non-tender abdomen Skin: warm Musculoskeletal: full muscle strength, no muscle tenderness Neurologic: AAOx3 Psychiatric: interacting appropriately ICD10 Worksheet Patient Problems: Problems Problem Status Onset Fever Acute Hyperglycemia Acute Renal insufficiency Acute Shortness of breath Acute Elevated troponin Acute Hypotension Acute Tachypnea Acute Weakness Acute
[2016-09-14] MEDS: INSULIN GLARGINE 100 UNITS/ML SYRINGE SC SCH (20:47)
[2016-09-15 07:48] VITALS: BP 128/67; PULSE 80; RESP 14; TEMP 97.7; O2SAT 97
[2016-09-15] MEDS: INSULIN LISPRO 100 UNIT/ML SC SCH ×2 (08:30→13:08)
[2016-09-15] MEDS: ENOXAPARIN 30 MG/0.3 ML SYR SC SCH (08:40)
--- NOTE | 2016-09-15 08:43 | HOSPPROG ---
Hospitalist Progress Note Assessment/Plan: He patient is an 85-year-old male with a history of type 2 diabetes. He has not been not feeling well and had rigors, fevers; he denies any abdominal pain. No nausea or vomiting. * bacteremia /E coli -Levaquin -possibly a urinary source, but not completely clear of source -2nd set of blood cx show no growth thus far *cholelithiasis -no surgery indicated *right lower lobe 11 mm pulmonary nodule vs calculi scarring -will need OP repeat imaging in 6 months -explained this to him via rn transition *Obstructing calculi in proximal right ureter -has no hydro noted -explained this to him via rn transition * renal insufficiency - creatinine is 1.2 * thrombocytopenia -likely due to acute illness * type 2 diabetes -place on sliding scale and have glucoses checked QAC and QHS *elevated LFT's/elevated bili -improved except for alk phos * hyperlipidemia -statin on hold due to the above *plan: discuss w ID to see if we can dc today/ patient will f/u with his PCP in [place], Dr Dickerson Subjective: Shiva is feeling great, Up in chair eating breakfast. Objective: Vital Signs Temp Pulse Resp BP Pulse Ox 36.5 C 80 14 128/67 H 97 09/15/16 07:48 09/15/16 07:48 09/15/16 07:48 09/15/16 07:48 09/15/16 07:48 Laboratory Results 09/14/16 04:38 09/14/16 04:38 PT 14.6 SEC (12.0-15.0) 09/11/16 09:19 INR 1.15 (0.83-1.16) 09/11/16 09:19 - Physical Exam Constitutional: no apparent distress, appears nourished, not in pain Eyes: PERRL Ears, Nose, Mouth, Throat: hearing normal Respiratory: no respiratory distress Skin: warm, normal color Neurologic: AAOx3 Psychiatric: interacting appropriately, not anxious ICD10 Worksheet Patient Problems: Problems Problem Status Onset Fever Acute Hyperglycemia Acute Renal insufficiency Acute Shortness of breath Acute Elevated troponin Acute Hypotension Acute Tachypnea Acute Weakness Acute
--- NOTE | 2016-09-15 11:30 | GDS ---
[f rep st] DISCHARGE SUMMARY DISCHARGE DIAGNOSES: 1. Escherichia coli bacteremia, likely urinary. 2. Cholelithiasis. 3. Right lower lobe 11 mm pulmonary nodule versus calculi scarring. 4. Obstructing calculi in proximal right ureter. 5. Renal insufficiency. 6. Thrombocytopenia. 7. Type 2 diabetes. 8. Elevated liver function tests. 9. Hyperlipidemia. BRIEF HISTORY: The patient is an 85-year-old male with history of type 2 diabetes, who was not feeling well. He had rigors and fever without any type of abdominal pain. To further evaluate his source of rigors and fevers, he had multiple imaging done. He had an abdominal ultrasound performed on admission, which showed cholelithiasis without secondary findings of acute cholecystitis. He had a MRI of the abdomen, which showed no choledocholithiasis or biliary dilatation. He had bulbous dilation of the common bile duct, which is likely of no clinical significance. This also showed cholelithiasis as well as hepatic steatosis. He has mild right hydronephrosis and severe atrophy. Subsequently, an abdomen and pelvic CT were performed for further evaluation. This showed an atrophic right kidney with a 7 x 11 mm obstructing calculus in the proximal right ureter. He had no left nephrolithiasis or left hydronephrosis. He has bilateral renal vascular atherosclerotic calcifications. Also, of note, he has a right lower lobe 11 mm nonspecific, noncalcified pulmonary nodule versus scarring. He was seen and evaluated by the surgical team, who noted that he did not need surgery. He became bacteremic during his stay and was seen by the Infectious Disease team. His blood culture grew out E coli. He was treated with Levaquin with good improvement. His blood cultures from the currently show no growth. He will be discharged home on Levaquin and follow up with the Infectious Disease team. CONSULTATIONS DURING HIS STAY: 1. Dr. Carmen Jordan. 2. Dr. Shanda Wiseman. HOSPITAL COURSE PER PROBLEM: 1. Bacteremia E coli. His second set of blood cultures showed no growth. He was treated with Levaquin. He is feeling markedly better. 2. Cholelithiasis. No surgery is indicated at this time. 3. Right lower lobe 11 mm pulmonary nodule versus calculi scarring. Recommended that he needs to get repeat imaging of the chest in 6 months. 4. Obstructing calculi in the proximal right ureter. He does not have any hydronephrosis and has had no pain. Further follow up with his primary care provider. 5. Renal insufficiency. Most recent creatinine is 1.2. 6. Thrombocytopenia due to acute illness. 7. Type 2 diabetes, stable. 8. Elevated liver enzymes with elevated bilirubin. This is improved except for his alkaline phosphorus. Will have these rechecked with his primary care provider. Will hold statin therapy while these are elevated. To be resumed after evaluation by his physician. 9. Hyperlipidemia. Statin on hold. PENDING LABS AND TESTS: None. CONDITION AT DISCHARGE: Stable. Blood pressure is 128/67, heart rate is 80, temperature 36.5 Celsius, O2 saturation on room air 97%. MEDICATIONS AT DISCHARGE: Please see the EMR. DISCHARGE INSTRUCTIONS: 1. To follow up with his primary care provider. 2. To take it easy because he was bacteremic. 3. To get liver enzymes checked and hold the statin. 4. To get a CT followup of his chest in regard to the 11 mm nodule versus scarring. 5. To take it easy while he is on Levaquin. If he has any tendon pain, to see his doctor right away. Greater than 30 minutes discharging and coordinating care. Copy requested to: Dr. Tuan Rdz [place] /[id number]/MODL MTDD
--- NOTE | 2016-09-18 10:42 | PQFORM ---
PHYSICIAN QUERY FORM Needs Your Response This query form is being sent to you to assure this patient record is coded properly. Please respond to the question below: BOILERS INSPECTOR QUESTION: Dr. Jordan, Documentation in the consultation dated 12 September 2016 states the patient has hepatitis with elevated bilirubin suspect due to sepsis/bacteremia. Since each of these conditions are coded differently, can it be further clarified whether this patient had: * Sepsis added to note * Bacteremia * Other * Clinically Undetermined Many thanks, SUZAN Morrison [facility]/Coding Department INSTRUCTIONS FOR RESPONSE: Answer question by clicking on the "Edit Document" button. Move cursor to area below the stars. When complete, hit "Save." Click on the "Sign" button, then click "Sign" again. Type in your PIN and hit "Enter." MTDD
== END 2016-09-15 14:03 | disposition home or self-care (01) | DRG 872 ==
LOC: F3E 13:49 → OBSVTOIN 09-12 17:28
PROVIDERS: ADMIT Internal Medicine; ATTEND Internal Medicine
DX: A41.51 Sepsis due to Escherichia coli [E. coli] (principal); N39.0 Urinary tract infection, site not specified; N20.9 Urinary calculus, unspecified; N17.9 Acute kidney failure, unspecified; N18.9 Chronic kidney disease, unspecified; D69.59 Other secondary thrombocytopenia; E11.9 Type 2 diabetes mellitus without complications; I10 Essential (primary) hypertension; E78.5 Hyperlipidemia, unspecified; K80.20 Calculus of gallbladder without cholecystitis without obstruction; G47.30 Sleep apnea, unspecified; Z87.891 Personal history of nicotine dependence; Z86.718 Personal history of other venous thrombosis and embolism
CPT/HCPCS: 86709-90; 97165-GO; G0378; G0472; G8987-GO-CI; G8988-GO-CI; G8989-GO-CI; J1335; J1650; J1815